=== PATIENT | female | born 1990 | race Two or more races ===

== ENCOUNTER 2019-01-22 09:49 | Inpatient (IN) | payer MEDICAID, OTHER ==
[~2019-01-22] VITALS: Ht 162.6 cm; Wt 45.8 kg
[2019-01-22 10:35] LABS: Basophils # (auto) 0 uL; Basophils % (auto) 0.4 % (0.0-2.0); Eosinophils # (auto) 0 uL; Eosinophils % (auto) 0.5 % (0.0-7.0); Hematocrit 41.2 % (36.0-46.0); Hemoglobin 13.9 g/dL (12.2-16.2); Lymphocytes # (auto) 1.4 uL; Lymphocytes % (auto) 20.2 % (10.0-50.0); Mean Corpuscular Hemoglobin 31.7 pg (28.0-32.0); Mean Corpuscular Hgb Conc. 33.9 g/dL (32.0-36.0); Mean Corpuscular Volume 93.6 fL (80.0-100.0); Monocytes # (auto) 0.4 uL; Monocytes % (auto) 5.7 % (0.0-12.0); Neutrophils # (auto) 5.2 uL; Neutrophils % (auto) 73.2 % (37.0-80.0); Nucleated Red Blood Cells % 0.1 %; Platelet Count (auto) 192 10^3/uL (140-450); Red Cell Distribution Width 12.8 % (11.8-14.3); White Blood Cell 7.1 10^3/uL (4.4-10.8)
[2019-01-22 10:59] LABS: Albumin 3.9 g/dL (3.4-5.0); BUN/Creatinine Ratio 17.1; Calcium 8.2 mg/dL (8.5-10.1); Potassium 3.4 mmol/L (3.5-5.1)
[2019-01-22 11:02] LABS: Bilirubin, Total 0.6 mg/dL (0.2-1.0); Total Protein 8.2 g/dL (6.4-8.2)
[2019-01-22 11:03] LABS: Urine Bacteria NONE SEEN /hpf (None Seen); Urine Blood 1+ /uL (Negative); Urine Hyaline Cast FEW /lpf (0 - 2); Urine Mucus FEW (None Seen); Urine Specific Gravity 1.029 (1.001-1.035); Urine WBC <1 /hpf (0 - 5)
[2019-01-22] MEDS ORDERED: IOHEXOL 300 MG/ML 100ML BOTTLE IJ ONE (11:35)
[2019-01-22] MEDS ORDERED: NITROGLYCERIN 0.4 MG SL TAB SL PRN (13:30)
[2019-01-22] MEDS ORDERED: MORPHINE SULF INJ 2 MG/ML SYRINGE 1ML IV PRN (13:30)
[2019-01-22] MEDS: SODIUM CHLORIDE 0.9% 1,000 ML IV SCH (14:18)
[2019-01-22 15:20] VITALS: BP 103/68
--- NOTE | 2019-01-22 15:20 | NUR ---
MS admit from ER IDALMIS BARRIENTOS admitted to tele/MS after SBAR received. Patient oriented to ASTRID GRIMES, primary RN, unit, room, bed, and unit policies regarding patient care and visiting hours. Patient weighed by bed scale and encouraged to call if they need something. All questions and concerns addressed, patient verbalized understanding.
[2019-01-22] MEDS ORDERED: INFLUENZA QUAD 2019-2020 0.5ml SYRG IM ONE (15:45)
--- NOTE | 2019-01-22 15:45 | NUR ---
No report / hand off tool from ER.
--- NOTE | 2019-01-22 16:30 | NUR ---
Dr. Bentley and Dr. Salas at bedside discussed with patient.
--- NOTE | 2019-01-22 16:36 | NUR ---
Dr. Kuhn regarding per Dr. Bentley patient needs to transfer to higher level of care. Awaiting to call back.
--- NOTE | 2019-01-22 16:40 | NUR ---
Dr. Kuhn called back stated wait for surgeon. Will endorse to virtual assistant.
--- NOTE | 2019-01-22 19:15 | NUR ---
RECEIVED PATIENT, AWAKE, ALERT, ORIENTED X4, AMBULATORY. NO S/S OF RESPIRATORY DISTRESS, DENIES ABDOMINAL PAIN, NAUSEA, VOMITING AND DIARRHEA. ORIENTED ON PLAN OF CARE. BED IS LOCKED AND IN LOWEST POSITION, SIDE RAILS UP X2, CALL LIGHT WITHIN REACH. WILL CONTINUE TO MONITOR.
[2019-01-22 22:00] VITALS: BP 117/76
[2019-01-22] MEDS: FAMOTIDINE 20 MG TAB PO SCH (22:01)
[2019-01-23] MEDS: SODIUM CHLORIDE 0.9% 1,000 ML IV SCH (04:35)
[2019-01-23 05:00] VITALS: BP 106/65
--- NOTE | 2019-01-23 07:14 | NUR ---
CARE ENDORSED TO AM SHIFT RN
--- NOTE | 2019-01-23 07:33 | NUR ---
Opening Shift Note: Assumed care of patient, awake and alert. No S/S of distress/SOB or pain. Bed in lowest locked position, side rails up x2, call light within reach. Patient instructed on POC and to call for assist PRN, will continue to monitor for changes Q1hr and PRN.
[2019-01-23 08:06] VITALS: BP 101/69
[2019-01-23] MEDS: FAMOTIDINE 20 MG TAB PO SCH (09:41)
--- NOTE | 2019-01-23 10:09 | NUR ---
Pt refused 1000 pepcid. Will continue to monitor.
--- NOTE | 2019-01-23 12:07 | NUR ---
Dr. Darwin Scales paged. Awaiting called back.
[2019-01-23 13:00] VITALS: BP 105/67
[2019-01-23] MEDS ORDERED: SODIUM CHLORIDE 0.9% 1,000 ML IV SCH (15:00)
--- NOTE | 2019-01-23 15:25 | NUR ---
Dr. Pavon at bedside. Discussed POC with patient. Patient verbally agreed.
--- NOTE | 2019-01-23 15:59 | NUR ---
Charge nurse Last and Dr. Pavon notified of patients wishes to AMA at this time.
--- NOTE | 2019-01-23 16:10 | NUR ---
IV removal: IV DC'd with clean sterile technique, catheter fully intact. Pressure dressing applied to site. Patient tolerated well.
--- NOTE | 2019-01-23 16:13 | NUR ---
AMA Note: IDALMIS BARRIENTOS states they want to leave the hospital Against Medical Advice (AMA). Patient encouraged to stay for further treatment/stabilization. Dr Librado DELACRUZ notified of patient's wishes. Patient advised of the risks and benefits of leaving AMA. Patient verbalized understanding. Patient encouraged to return to the ER if symptoms do not improve or worsen.
--- NOTE | 2019-01-25 09:07 | NUR ---
Weekend abalone processor-I did not receive a page regarding the social service consult on this patient.
== END 2019-01-23 16:38 | disposition left against medical advice (07) | DRG 254 ==
LOC: ER 09:55 → OVERFLOW 09:56 → EAST 14:57
PROVIDERS: ADMIT Internal Medicine; ATTEND Internal Medicine
DX: R19.00 Intra-abdominal and pelvic swelling, mass and lump, unspecified site (principal); N83.9 Noninflammatory disorder of ovary, fallopian tube and broad ligament, unspecified; R63.4 Abnormal weight loss; Z53.29 Procedure and treatment not carried out because of patient's decision for other reasons; Z98.51 Tubal ligation status; Z98.891 History of uterine scar from previous surgery; Z68.1 Body mass index [BMI] 19.9 or less, adult
CPT/HCPCS: 36415; 74177; 80053; 81001; 82378; 85025; 86301; 86304; 96360; G0378

== ENCOUNTER 2021-04-30 12:06 | Emergency (ER) | payer MEDICAID ==
[~2021-04-30] VITALS: Ht 157.5 cm; Wt 44.0 kg
[2021-04-30 12:52] VITALS: BP 121/80
== END 2021-04-30 15:52 | disposition home or self-care (01) ==
LOC: ER 12:10
DX: N64.4 Mastodynia (principal)
CPT/HCPCS: 76642